=== PATIENT | female | born 1975 | race Caucasian/White ===

== ENCOUNTER 2017-03-30 15:10 | Emergency (ER) | payer MEDICAID ==
[~2017-03-30] VITALS: Ht 167.6 cm; Wt 87.0 kg
[~2017-03-30 15:10] MED LIST: AMIT25TA PO; MELO15TA24 PO; PANT20TA3 PO
[2017-03-30 15:12] VITALS: BP 113/82
[2017-03-30] MEDS ORDERED: SODIUM CHLORIDE FLUSH 10ML SYR IVF ONE (15:30)
[2017-03-30] MEDS ORDERED: ONDANSETRON 2MG/ML, 2ML IVPush ONE (15:30)
[2017-03-30] MEDS ORDERED: SODIUM CHLORIDE 0.9% 1,000ML IVBOLUS ONE (15:30)
[2017-03-30 15:56] LABS: HEMATOCRIT 44.1 % (34.6-47.8); WHITE BLOOD COUNT 8.1 x10^3/uL (3.4-10)
[2017-03-30 16:05] LABS: ASPARTATE AMINO TRANSFERASE 16 U/L (15-37); BLOOD UREA NITROGEN 12 mg/dL (7-18)
== END 2017-03-30 17:21 | disposition home or self-care (01) ==
LOC: ED 16:22
DX: K92.1 Melena (principal); Z90.49 Acquired absence of other specified parts of digestive tract; F17.200 Nicotine dependence, unspecified, uncomplicated
CPT/HCPCS: 36415; 76700; 80053; 83690; 85025; 96360; 99285; J7030

== ENCOUNTER 2018-08-05 09:32 | Emergency (ER) | payer MEDICAID ==
[~2018-08-05] VITALS: Ht 167.6 cm; Wt 78.6 kg
[2018-08-05 09:48] VITALS: BP 138/102
--- NOTE | 2018-08-05 11:53 | NUR ---
No answer for PA to PIT at 1140, no answer to room at 1153
== END 2018-08-05 12:05 | disposition left against medical advice (07) ==
LOC: ED 11:59
DX: R53.1 Weakness (principal); Z53.21 Procedure and treatment not carried out due to patient leaving prior to being seen by health care provider